=== PATIENT | female | born 1975 ===

== ENCOUNTER 2018-04-19 06:20 | Day surgery (SDC) | payer OTHER ==
[~2018-04-19 06:20] MED LIST: CALTRATE 600+D1 EAC1 PO; GNP NORWEGIAN1 EACH PO
== END 2018-04-19 11:20 | disposition home or self-care (01) ==
LOC: CIR.AMB 06:20
DX: N93.8 Other specified abnormal uterine and vaginal bleeding (principal); N72 Inflammatory disease of cervix uteri

== ENCOUNTER 2023-06-09 08:15 | Inpatient (IN) | payer OTHER ==
[~2023-06-09] VITALS: Ht 157.5 cm; Wt 54.4 kg
[2023-06-09 09:38] LABS: PH,URINE 5.5 (5.0-8.0); URINE APPEARANCE Clear; URINE BILIRRUBIN Negative (NEGATIVE); URINE BLOOD Negative; URINE COLOR Yellow; URINE GLUCOSE Negative (NEGATIVE); URINE LEUKOCYTE Negative; URINE NITRATE Negative; URINE PROTEIN Negative (NEGATIVE); URINE UROBILINOGEN 0.2 E.U./dl
[2023-06-09 09:42] LABS: URINE BACTERIA 1545.9 uL (0.0-1933); URINE EPITHELIAL CELLS 34.9 uL (0.0-38.8); URINE RBC 13.7 uL (0.0-20.8); URINE WBC 6.1 uL (0.0-23.2)
[2023-06-09 09:54] LABS: HEMOGLOBIN 12.8 g/dL (12.0-15.00); MEAN CELL VOLUME 86.9 fL (80.00-100.00); MEAN CORPUSCULAR HEMOGLOBIN 29.3 pg (27.00-32.0); MEAN CORPUSCULAR HGB CONC 33.7 g/dl (32.0-36.0); PLATELET COUNT 178 K/uL (150-450); RED BLOOD COUNT 4.37 M/uL (4.00-6.00); RED CELL DISTRIBUTION WIDTH 13.5 % (11.5-14.5)
[2023-06-09 11:01] LABS: INR 1.01; PARTIAL THROMBOPLASTIN TIME 26.9 SECONDS (22.0-34.0); PROTHROMBIN TIME 10.6 SECONDS (9.0-11.5)
== END 2023-06-17 09:39 | disposition home or self-care (01) | DRG 743 ==
LOC: O/R 06-15 05:20 → SURG 06-15 07:00 → OB/GYN 06-15 09:40
PROVIDERS: ADMIT Obstetrics & Gynecology; ATTEND Obstetrics & Gynecology
PROC: 0UT70ZZ Resection of Bilateral Fallopian Tubes, Open Approach (ICD-10-PCS; 2023-06-15)
PROC: 0UT20ZZ Resection of Bilateral Ovaries, Open Approach (ICD-10-PCS; 2023-06-15)
PROC: 0DN80ZZ Release Small Intestine, Open Approach (ICD-10-PCS; 2023-06-15)
PROC: 0UT90ZZ Resection of Uterus, Open Approach (ICD-10-PCS; principal; 2023-06-15 07:00)
DX: D25.1 Intramural leiomyoma of uterus (principal); N72 Inflammatory disease of cervix uteri; N83.11 Corpus luteum cyst of right ovary; N83.02 Follicular cyst of left ovary; Z20.822 Contact with and (suspected) exposure to COVID-19; N73.6 Female pelvic peritoneal adhesions (postinfective)